=== PATIENT | female | born 1990 | race Caucasian/White ===

== ENCOUNTER 2018-06-05 07:23 | Emergency (ER) | payer BC ==
[~2018-06-05] VITALS: Wt 84.0 kg
[2018-06-05 07:24] VITALS: BP 160/85; PULSE 65; RESP 18
[2018-06-05] MEDS ORDERED: NAPR-985 PO (08:56)
--- NOTE | 2018-06-05 09:00 | ERD ---
ER Documentation Chief Complaint Chief Complaint LEFT ANKLE PAIN FROM SOMEONE ROLLED ON IT. NO DEFORMITY NOTED. HPI 27-year-old female presenting with left ankle pain after she rolled it ye sterday. She has not taken any medications for pain is only ice and elevate her ankle. She denies any numbness or tingling. Medical history is type I diabetic. Allergy to sulfa and Ceclor. Surgical history is tonsillectomy. Social history denies ROS All systems reviewed and are negative except as per history of present illness. Medications Home Meds Active Scripts Naproxen* (Naprosyn*) 500 Mg Tablet, 500 MG PO BID PRN for PAIN AND/OR INFLAMMATION, #30 TAB Prov:MAUREEN SCHNEIDER PA-C 06/05/18 Allergies Allergies: Coded Allergies: cefaclor (Verified Allergy, Unknown, 06/05/18) Uncoded Allergies: SULFA (Allergy, Unknown, 06/05/18) PMhx/Soc Hx Miscellaneous Medical Probl: Yes (TYPE 1 DM) Hx Alcohol Use: No Hx Substance Use: No Hx Tobacco Use: No Smoking Status: Never smoker FmHx Family History: No diabetes, No coronary disease, No other Physical Exam Vitals Vital Signs Date Temp Pulse Resp B/P (MAP) Pulse Ox O2 O2 Flow FiO2 Time Delivery Rate 06/05/18 97.5 65 18 160/85 99 07:24 (110) Physical Exam GENERAL: The patient is well-appearing, well-nourished, in no acute distress CHEST: Clear to auscultation bilaterally. There are no rales, wheezes or rhonchi. HEART: Regular rate and rhythm. No murmurs, clicks, rubs or gallops. EXTREMITIES: Equal pulses bilaterally. There is no peripheral clubbing, cyanosis or edema. No focal swelling or erythema. Full range of motion. NEUROLOGIC: Alert and oriented. Cranial nerves II through XII intact. Motor strength in all 4 extremities with 5 out of 5 strength. Sensation grossly intact. SKIN: There is no apparent rash or petechiae. The skin is warm and dry. Mild swelling noted to the ankle Procedures/MDM v=DIAGNOSTIC IMAGING REPORT Patient: JARETH CHEN : 1990 Age: 27 Sex: F MR #: [id number] DOS: 06/05/18 0738 Ordering MD: OTILIO SCHNEIDER PA-C Location: [facility] Room/Bed: PROCEDURE: XR Ankle. CLINICAL INDICATION: pain TECHNIQUE: AP, oblique and lateral views of the left ankle were performed. COMPARISON: None. FINDINGS: There is normal mineralization and alignment. No fracture or osseous lesion is identified. The joints are normal. There is soft tissue swelling lateral to lateral malleolus. IMPRESSION: Soft tissue swelling lateral to the lateral malleolus with no acute fracture. ER Course: Bob wrap reapplied MDM: 27-year-old female presenting with ankle pain. I have low suspicion for acute fracture dislocation. I have low suspicion for compartment syndrome. Patient is discharged with strict ER precautions and supportive medications. Patient is told symptoms change or worsen to return immediately to the ER. All questions answered at discharge Departure Diagnosis: Primary Impression: Ankle injury Condition: Stable Patient Instructions: Treating Ankle Sprains Referrals: [facility] (PCP) Additional Instructions: FOLLOW UP WITH YOUR PRIMARY CARE PHYSICIAN TOMORROW.Return to this facility if you are not improving as expected. MAUREEN SCHNEIDER PA-C Jun 05, 2018 09:00
== END 2018-06-05 09:00 | disposition home or self-care (01) ==
LOC: FTE 07:23
DX: S99.912A Unspecified injury of left ankle, initial encounter (principal); E10.9 Type 1 diabetes mellitus without complications; X58.XXXA Exposure to other specified factors, initial encounter; Y92.9 Unspecified place or not applicable
CPT/HCPCS: 73610